=== PATIENT | male | born 1970 | race Caucasian/White ===

== ENCOUNTER → 2018-05-11 14:46 | Outpatient (CLI) | payer OTHER | END | disposition home or self-care (01) | LOC: D.MRI 14:30 | PROVIDERS: ATTEND Family Medicine | DX: M25.562 Pain in left knee (principal) ==

== ENCOUNTER 2018-06-07 08:15 | Day surgery (SDC) | payer OTHER ==
[2018-06-06 12:56] LABS: HEMATOCRIT 45.5 % (42.0-54.0); HEMOGLOBIN 17.3 g/dL (13.5-17.5); MCH 32.5 pg (26.0-34.0); MCV 85.4 fL (80.0-100.0); MEAN PLATELET VOLUME 10.2 fL (7.4-10.4); RBC 5.33 10x6/uL (4.20-6.10); RDW 12.9 % (11.5-14.5); WBC 9.6 10x3/uL (4.8-10.8)
[~2018-06-07] VITALS: Ht 172.7 cm; Wt 97.5 kg
[2018-06-07] MEDS ORDERED: BLOOD PRESSURE PILL PO (08:57)
[2018-06-07 09:22] VITALS: BP 170/111; Ht 172.7 cm; Wt 97.5 kg
[2018-06-07] MEDS ORDERED: PERCOCET 5-3251 TAB PO (14:12)
--- NOTE | 2018-06-07 16:16 | OP ---
PATIENT NAME: XIAO LOZA MEDICAL RECORD: [id number] :72 LOCATION:[facility] ADMISSION DATE: SURGEON: GIO HDZ DO DATE OF OPERATION: 06/07/2018 PROCEDURE PERFORMED: Left knee arthroscopy with medial meniscal repair. PREOPERATIVE DIAGNOSIS: Left knee medial meniscal tear. POSTOPERATIVE DIAGNOSIS: Left knee medial meniscal tear. INDICATIONS: Mr. Loza is a 47-year-old male who is quite active, he is in the [employer], [employer], and he has had left knee pain for some time. He got an MRI, which showed a meniscal tear. He wanted to try to ignore it and he tried all manner of nonoperative treatment and could not. Given the pain, catching, popping and locking and he was tired of dealing with it and came to my office. I informed him that we could do, I would have to look at it and see if it is repairable or trim it out, he was okay with that and was aware of the risks including blood clots, bleeding, damage to nerves and vessels, need for further surgery and further tear in the meniscus and he signed the consent. SURGEON: Gio Hdz DO DESCRIPTION OF PROCEDURE: The patient was taken to the operative suite, laid in supine position, given general anesthetic, 2 grams Ancef. The left lower extremity was prepped and draped in sterile fashion. Timeout was performed. Everyone was in agreeance with the correct side, site, patient and procedure. The knee was then flexed down and 2 mL of 0.25% Marcaine with epinephrine was injected over the medial and lateral sides of the patellar tendon for the proposed portal sites, the lateral portal was then established with an 11-blade scalpel. Trocar was entered into the knee. The knee was then inspected. No loose bodies were seen in the suprapatellar pouch. The patella did not show any chondromalacia. Medial and lateral gutters were free of debris or loose bodies. The knee was then flexed down and the medial portal was established with an 18-gauge spinal needle and 11-blade scalpel. Trocar was then brought into the knee to open it up. The probe was then brought in and the knee was extended with valgus stress and the meniscus was seen between the middle and posterior third to have a horizontal tear, initially trimmed out the very inner part of it, exposing more of the underneath side where the tear was, it went all the way through the meniscus. I then switched the camera portals from [id number] and then brought in a Fast-Fix device to repair the meniscus, first more posterior and then brought about 5-mm more anterior bridging the tear. This was then cinched down repairing the tear nicely. This was then cut with a cutter. This had a nice repair on it and was very stable. We then had inspected the ACL, it was very taut and in good position, and the lateral compartment was inspected as well. No loose bodies. There were no meniscal tears to the lateral meniscus either. A power pick was then brought in through the medial portal and the notch was drilled, about 5 holes were drilled in the notch, drilled on the stem cells to assist and repair of the meniscus. This was all removed. The water was turned off. Suction was turned on and the excess fluid was removed out of the knee. The portal sites were then closed with a 4-0 Monocryl in an inverted interrupted fashion. Steri-Strips, Adaptic, 4 x 4's, ABD, Webril, Adis wrap were then placed on the knee. VARGAS hose stocking was up to the knee. The patient was placed in the knee immobilizer, awakened and taken to recovery in stable condition. OPERATIVE REPORT [id number] XIAO LOZA BLOOD LOSS: Minimal. COMPLICATIONS: None. TRANSINT:[id number] Voice Confirmation ID: [id number] DOCUMENT ID: [id number] GIO HDZ DO at 1616 CC: [id number] DICTATION DATE: 06/07/18 1418 EXCHANGE FLOOR MANAGER: 06/07/18 1537 [facility] [address] [id number]
--- NOTE | 2018-06-07 16:18 | NUR ---
1615 FL DIET SERVED.
== END 2018-06-07 17:10 | disposition home or self-care (01) ==
LOC: D.OPS 08:15 → D.PAN 12:00 → D.OPS 12:00
PROVIDERS: Anesthesiology; ATTEND Orthopaedic Surgery
DX: S83.242A Other tear of medial meniscus, current injury, left knee, initial encounter (principal)